=== PATIENT | female | born 1985 | race Caucasian/White ===

== ENCOUNTER → 2020-07-01 | Outpatient (CLI) | payer OTHER ==
--- NOTE | 2020-07-01 12:36 | REP ---
INDICATION: ANATOMY. COMPARISON: None. TECHNIQUE: Trans abdominal obstetric sonography. FINDINGS: Scanning through the gravid uterus demonstrates a viable single intrauterine gestation in cephalic lie. motion is observed and heart rate is recorded at 139 beats per minute. A posterior placenta is seen, grade 1, without evidence of placenta previa. Closed cervical length is measured at 5.1 cm transabdominally. No extrauterine abnormality is observed. Amniotic fluid is subjectively normal. The following anatomic structures are identified and felt to be unremarkable: cranium and intracranial contents, lungs, diaphragm, left-sided stomach, abdominal wall cord insertion, the right and left kidney, urinary bladder, spine, upper and lower extremities. face and profile, nose and lips, four-chamber heart and outflow tract views were less than optimally seen due to position.. Biometry chart: BPD 4.6 cm, 20 weeks 0 days Head circumference 17.5 cm, 20 weeks 0 days Abdominal circumference 14.7 cm, 20 weeks 0 days Femur length 3.4 cm, 20 weeks 3 days Numeral length 3.1 cm, 20 weeks 2 days Cephalic index normal 0.72 Estimated weight 338 g, 0 lb 11 oz, 16th percentile for 20 weeks 6 days IMPRESSION: Viable single intrauterine gestation at 20 weeks 1 days by today's composite sonographic criteria. NIDHI by today's sonography November 17, 2020. No complication identified. Known NIDHI November 12, 2020 expected gestational age estimate 20 weeks 6 days. cardiac structures and face less than optimally seen due to position today. <Electronically signed by Henry Hsu > 07/01/20 [id number]
== END ==
LOC: M WHC 09:58
PROVIDERS: ATTEND Advanced Practice Midwife
DX: Z34.82 Encounter for supervision of other normal pregnancy, second trimester (principal)

== ENCOUNTER → 2020-07-15 | Outpatient (REF) | payer OTHER | LOC: M SFHCWAGY 12:56 | PROVIDERS: ATTEND Advanced Practice Midwife | DX: O34.219 Maternal care for unspecified type scar from previous cesarean delivery (principal); Z3A.00 Weeks of gestation of pregnancy not specified | CPT/HCPCS: 87086; G0463 ==

== ENCOUNTER → 2020-08-04 | Outpatient (CLI) | payer OTHER ==
--- NOTE | 2020-08-05 07:28 | REP ---
INDICATION: F/U ANATOMY COMPARISON: 07/01/2020 TECHNIQUE: Transabdominal obstetrical ultrasound with color Doppler evaluation. FINDINGS: Examination demonstrates a single live intrauterine in cephalic presentation. motion is identified by technologist. Placenta is noted posterior and grade 1 without evidence for placenta previa or abruption. Amniotic fluid volume is normal. Cervix measures 4.0 cm in length and appears closed.. Selected gestational age: 25 weeks 4 days with NIDHI 11/13/2020. Gestational age by current measurements 25 weeks 3 days with NIDHI 11/14/2020. FHR equals 135 beats per minute. Estimated weight 785 grams (26thpercentile). Anatomical assessment demonstrates normal structures including four-chamber heart/ventricular outflow tracts, nose/lips, and facial profile. IMPRESSION: Single live intrauterine in cephalic presentation demonstrating appropriate interval growth. In conjunction with prior examination anatomical assessment is complete and normal. <Electronically signed by Georgi Rodriguez > 08/05/20 [id number]
== END ==
LOC: M WHC 10:27
PROVIDERS: ATTEND Advanced Practice Midwife
DX: O34.219 Maternal care for unspecified type scar from previous cesarean delivery (principal); Z3A.25 25 weeks gestation of pregnancy

== ENCOUNTER → 2020-08-10 | Outpatient (CLI) | payer OTHER ==
[2020-08-10 08:50] LABS: HEMATOCRIT 34.8 % (36.0-47.0); HEMOGLOBIN 11.9 g/dl (12.0-15.5); MEAN CORPUSCULAR HEMOGLOBIN 32.3 pg (27.0-33.0); MEAN CORPUSCULAR HGB CONC 34.2 g/dl (32.0-36.5); MEAN CORPUSCULAR VOLUME 94.6 fl (80.0-96.0); PLATELET COUNT, AUTOMATED 137 10^3/uL (150-450); RED BLOOD COUNT 3.68 10^6/uL (4.00-5.40); WHITE BLOOD COUNT 8.9 10^3/uL (4.0-10.0)
== END ==
LOC: M LAB 07:49
PROVIDERS: ATTEND Advanced Practice Midwife
DX: O34.219 Maternal care for unspecified type scar from previous cesarean delivery (principal)

== ENCOUNTER → 2020-10-13 | Outpatient (REF) | payer OTHER ==
[~2020-10-13] MED LIST: PRENTAB9 PO
== END ==
LOC: M SFHCWAGY 13:10
PROVIDERS: ATTEND Advanced Practice Midwife
DX: Z34.93 Encounter for supervision of normal pregnancy, unspecified, third trimester (principal); Z3A.35 35 weeks gestation of pregnancy
CPT/HCPCS: 87081; G0463

== ENCOUNTER → 2020-10-14 | Outpatient (CLI) | payer OTHER ==
--- NOTE | 2020-10-14 14:37 | REP ---
INDICATION: GROWTH MATERNAL CARE DUE TO LOW TRANSVERSE UTERINE SCAR FROM. COMPARISON: 08/04/2020. TECHNIQUE: Real-time sonographic evaluation of the gravid uterus performed. FINDINGS: Estimated gestational age is35 weeks 5 days, EDC 11/13/2020. Today's measurements indicate appropriate growth. Presentation: Cephalic Placenta posterior, grade 1, without evidence of placenta previa. heart rate is recorded at 133 beats per minute. Amniotic fluid is subjectively normal. EZE 22.2, normal 7.8-24.9. Closed cervical length is measured at 3.4 cm. Biometry chart: BPD: 90 mm, 36 weeks 4 days, 62nd percentile. HC: 331 mm, 37 weeks 5 days, 84th percentile AC: 334 mm, 37 weeks 2 days, 74th percentile Femur length: 71 mm, 36 weeks 3 days, 60th percentile HC to AC ratio: 0.99, normal range 0.93-1.12. Estimated weight: 04/26/2003g, 84th percentile. IMPRESSION: Viable single intrauterine gestation as above. <Electronically signed by Kj Renae > 10/14/20 [id number]
== END ==
LOC: M WHC 13:40
PROVIDERS: ATTEND Advanced Practice Midwife
DX: O34.211 Maternal care for low transverse scar from previous cesarean delivery (principal); Z3A.35 35 weeks gestation of pregnancy

== ENCOUNTER 2020-11-14 09:13 | Inpatient (IN) | payer OTHER ==
[2020-11-14] VITALS (15 sets, daily range): BP systolic 96–122; BP diastolic 60–85
[~2020-11-14] VITALS: Ht 170.2 cm; Wt 75.3 kg
[2020-11-14] MEDS ORDERED: PRENTAB9 PO (10:32)
[2020-11-14] MEDS ORDERED: HOME MED LIST COMPLETE! XX SCH (10:35)
[2020-11-14] MEDS ORDERED: OXYTOCIN DRIP 30 UNITS in IV 1 EA IV PRN (15:10)
[2020-11-14] MEDS ORDERED: CARBOPROST TROMETHAMINE 250 MCG/ML AMP IM PRN (15:10)
[2020-11-14] MEDS ORDERED: METHYLERGONOVINE MALEATE 0.2 MG/ML VIAL (J2210) IM PRN ×2 (15:10→20:45)
[2020-11-14] MEDS ORDERED: LIDOCAINE 1% MDV 20ML VIAL INFIL PRN (15:10)
[2020-11-14] MEDS ORDERED: TRANEXAMIC ACID INJection 1,000 MG in NS 100 ML IV PRN (15:10)
--- NOTE | 2020-11-14 15:18 | HPEPDOC ---
Obstetrical History & Physical General Date of Admission Nov 14, 2020 at 15:05 Primary Care Physician: CARIE PINEDA CNM History of Present Illness Cheryl is a 34 y.o. female with a due date of 11/13/2020, based off of LMP and confirmed with 1st TM u/s, presents to triage today with onset of uterine contractions, varying from q 2-9 minutes, no prior cervical checks at her visits. She initiated PN care in [place] and transferred to [facility] in her 2nd trimester. Pt denies loss of fluids or vaginal bleeding. Reports good movement. Cheryl plans TOLAC, has had one prior vaginal delivery and previous delivery via c/s due to breech presentation. Pt has been extensively counselled on TOLAC including risk/benefits and alternatives and pt desires to continue with vaginal delivery. Chief Complaint: Contractions, term Information Provided By: Patient Age: 34 : 3 Term: 2 Pre-term: 0 Abortions: 0 Livin Care Care: Good Care Dating Final EDC: Nov 13, 2020 Final EDC by: LMP (02/07/2020) LMP: Feb 07, 2020 Weeks + Days: 40.1 Estimated Date of Confinement: Nov 13, 2020 EGA at Admission: 40.1 Antepartum Course Height (inches): 67 Pre- weight (lbs.): 147.6 Admission Weight (lbs.): 163 Change in Weight (lbs.): 16 Past Medical History Past Obstetrical History #1: Past Obstetrical History: Multigravida Date of Delivery: Nov 02, 2014 Gestation: 40.2 Type of Delivery: Spontaneous Vaginal Del. 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 Past Medical History Medical History Hx of GDM with previous Surgical History: section Family History Significant Family History: Heart disease, Hypertension Family History Father with AMI, DM1 Mother with htn, heart murmur Social History Marital Status: Family situation: Spouse/partner home Psychosocial History: No pertinent psych hx * Smoker: non-smoker Alcohol: Denies Drugs: denies Abuse Violence Screening Have you been hit/kicked/slapp: No Have you been sexually assault: No Imunizations Tdap status: current Allergies Coded Allergies: Penicillins (Verified Allergy, Severe, RASH AND FACIAL SWELLING, 11/14/20) Medications Scheduled No.137/Iron/Folic Acd ( Vitamin Tablet) 1 Each Tablet, 1 TAB PO DAILY Physical Examination Physical Examination GENERAL: Alert and oriented times three. ABDOMEN: Gravid and non-tender to touch. FETUS: Is vertex (VTX) by sterile vaginal examination (SVE), fetus is vertex (VTX) by Pj. Presentation confirmed by bedside u/s. RESP: regular rate and rhythm on room air, no use of accessory muscles. EXTREMITIES: generalized edema in lower extremities. Vital Signs/I&O Vital Signs Date Time Temp Pulse Resp B/P (MAP) Pulse Ox O2 Delivery O2 Flow Rate FiO2 11/14/20 14:21 98.4 96 16 119/73 (88) 11/14/20 10:14 99 Room Air Laboratory Data Urine Culture: Other Pertinent Laboratoy Data Blood Type: A+ RBC Antibody Screen: Negative HIV: Negative Hepatitis B: Negative Hepatitis C: Negative Rapid Plasma Reagin: Nonreactive Rubella: Immune Chlamydia/Gonorrhea: Negative Group B Streptococcus: Negative Glucose Tolerance Test: 160 Diag/Inter Therapy 3 hour 70/164/136/94 NIPT low risk, normal male Anatomy Ultrasound Ultrasound Date: Oct 14, 2020 Placenta Location: Posterior Normal Anatomy: Yes Placenta Previa: No Estimated Weight (grams): 3104 Steroid Therapy Steroid Therapy: No Vaginal Examination Dilation: 5 cm Effacement: 90% Station: -1 Cervical Consistency: Soft Cervical Position: Anterior Presentation: Cephalic presentation Assessment Heart Rate (FHR): 140 Variability: Moderate Accelerations: Positive Decelerations: None Tocometer Contractions: Yes Frequency: regular, other (2-4 min) Multi-drug resistant Organism: No history of MDRO Assessment/Plan Assessment IUP at 40.1 weeks gestation Hx of LTCS GBS neg Cat 1 FHR tracing Desires TOLAC Plan Admit and orient to Labor and Delivery. Dr Gamez notified and plan of care collaborated, risks/benefits and alternatives have been discussed with patient a nd she desires to proceed with TOLAC. OOB ad claudia Diet: as tolerated until active labor, then clear. Group B Streptococcus (GBS) negative. Labs and intravenous (IV) per unit protocol. Anesthesia consult per patient request Anticipate cervical change with normal spontaneous delivery (). C-S as appropriate. CARIE PINEDA CNM Nov 14, 2020 15:18
[2020-11-14 15:59] LABS: HEMATOCRIT 36.1 % (36.0-47.0); HEMOGLOBIN 12.5 g/dl (12.0-15.5); MEAN CORPUSCULAR HEMOGLOBIN 31.5 pg (27.0-33.0); MEAN CORPUSCULAR HGB CONC 34.6 g/dl (32.0-36.5); MEAN CORPUSCULAR VOLUME 90.9 fl (80.0-96.0); PLATELET COUNT, AUTOMATED 160 10^3/uL (150-450); RED BLOOD COUNT 3.97 10^6/uL (4.00-5.40); WHITE BLOOD COUNT 13.6 10^3/uL (4.0-10.0)
--- NOTE | 2020-11-14 20:44 | DNPDOC ---
[facility] Delivery Note Delivery Note DATE OF DELIVERY: 11/14/20 at 2002 PREDELIVERY DIAGNOSIS: 40-1/7 weeks' gestation and active labor. POST DELIVERY DIAGNOSIS: Delivered. PROCEDURE: Vaginal delivery after section. ADULT MANAGER: Carie Ramirez CNM, DANIAL precepting OLYA Small ANESTHESIA: none. ESTIMATED BLOOD LOSS: 250 mL. FINDINGS: 8 pounds 3 ounces; 3720 grams; male , Score 9/9, . DELIVERY SUMMARY: Cheryl is a 34-year-old female who is now a who presented to L&D in early active labor. She spontaneously ruptured to a large amount of clear fluid at 190. Dr. Gamez was notified of patient being in active labor when she was 6 cm and instructed to be available for delivery. She progres sed to fully dilated at 2001 and pushed to a living male in the KALEB position with restitution to ROT. The anterior shoulder delivered with ease and the corpus immediately followed. The baby was placed [id number] active and crying. The cord was clamped after 2+ minutes and was cut by the FOB. A 3-vessel cord was noted. The placenta delivered spontaneously and intact at 2009. Uterine hemostasis was achieved via rapid infusion of IV Pitocin and fundal massage. The vagina, cervix, and perineum was inspected and found to have a first degree perineal laceration that was repaired with a 3.[address]-1. Mom plans to breastfeed. They haven't decided on a name. All counts of instruments and sponges are correct. Both mom and baby are in stable condition. CARIE RAMIREZ CNM Nov 14, 2020 20:44
[2020-11-14] MEDS ORDERED: ANUSOL HC CREAM 30GM TOP PRN (20:45)
[2020-11-14] MEDS ORDERED: DOCUSATE SODIUM 100MG CAPSULE PO PRN (20:45)
[2020-11-14] MEDS ORDERED: DIBUCAINE 1% OINTMENT 30GM TOP PRN (20:45)
[2020-11-14] MEDS ORDERED: MEASLES,MUMPS,RUBELLA VACCINE INJ (MMR-II) (90707) SC SCH (20:45)
[2020-11-14] MEDS ORDERED: ACETAMINOPHEN TAB 650MG DOSE (2X325MG) PO PRN (20:45)
[2020-11-14] MEDS ORDERED: RHOGAM 300 MCG (1500 IU) INJ (J2790) IM SCH (20:45)
[2020-11-14] MEDS ORDERED: IBUPROFEN 600MG TAB PO PRN (20:45)
[2020-11-14] MEDS ORDERED: MOM 30ML SUSPENSION UDC PO PRN (20:45)
[2020-11-14] MEDS: IBUPROFEN 800 MG TAB PO PRN (20:54)
[2020-11-15] MEDS: ACETAMINOPHEN 500 MG TAB PO PRN ×2 (00:18→08:00)
[2020-11-15] MEDS: IBUPROFEN 800 MG TAB PO PRN ×2 (05:09→13:55)
[2020-11-15 06:00] VITALS: BP 113/69
[2020-11-15] MEDS: PRENATAL VITAMINS CHEWABLE TABLET PO SCH (07:30)
[2020-11-15 18:34] VITALS: BP 95/50
--- NOTE | 2020-11-15 22:07 | IPNPDOC ---
Text Note Date of Service The patient was seen on 11/15/20. NOTE S: no complaints O: AVSS NAD Abd: NT, FF ext: NT A/P PPD#1 routine PP care VS,Fishbone, I+O VS, Fishbone, I+O Vital Signs Date Time Temp Pulse Resp B/P (MAP) Pulse Ox O2 Delivery O2 Flow Rate FiO2 11/15/20 18:34 98.7 75 16 95/50 (65) 98 Room Air I&O- Last 24 Hours up to 6 AM 11/15/20 06:00 Intake Total 1870 ml Output Total 350 ml Balance 1520 ml MHOAN DURON MD Nov 15, 2020 22:07
[2020-11-16] MEDS: IBUPROFEN 800 MG TAB PO PRN (05:40)
[2020-11-16 06:00] VITALS: BP 101/56
[2020-11-16] MEDS: PRENATAL VITAMINS CHEWABLE TABLET PO SCH (08:29)
== END 2020-11-16 14:46 | disposition home or self-care (01) | DRG 807 ==
LOC: M LDO 09:13 → M LDI 15:05 → M OBS 21:40
PROVIDERS: ADMIT Advanced Practice Midwife; ATTEND Advanced Practice Midwife
PROC: 10E0XZZ Delivery of Products of Conception, External Approach (ICD-10-PCS; principal; 2020-11-14)
PROC: 0HQ9XZZ Repair Perineum Skin, External Approach (ICD-10-PCS; 2020-11-14)
DX: O34.211 Maternal care for low transverse scar from previous cesarean delivery (principal); Z37.0 Single live birth; Z3A.40 40 weeks gestation of pregnancy; O70.0 First degree perineal laceration during delivery

== ENCOUNTER 2024-08-31 14:30 | Outpatient (CLI) | payer OTHER ==
[~2024-08-31 14:30] MED LIST changes: +ALBUTEROL SULFATE 2.5 MG/0.5 ML INH CONCENTRATE NEB SOLN INH PRN; +EPINEPHrine INJ 1 MG/ML 1ML AMP IM PRN; +diphenhydrAMINE 50 MG/ML VIAL IV PRN
[2024-08-31 14:45] VITALS: BP 118/59; O2SAT 98
[2024-08-31] MEDS: FERRIC CARBOXYMALTOSE 750 MG (VIAL MATE) IN 100ML NS IV ONE (15:00)
[2024-08-31 15:27] VITALS: BP 99/54; O2SAT 100
== END 2024-08-31 15:27 | disposition home or self-care (01) ==
LOC: M INFU 14:30
PROVIDERS: ATTEND Nurse Practitioner Adult Health
DX: D50.9 Iron deficiency anemia, unspecified (principal); Z88.0 Allergy status to penicillin
CPT/HCPCS: 96365; J1439